=== PATIENT | female | born 1990 | race Caucasian/White ===

== ENCOUNTER 2024-02-25 07:43 | Emergency (ER) | payer OTHER ==
[~2024-02-25] VITALS: Ht 162.6 cm; Wt 81.8 kg
[2024-02-25 07:48] VITALS: TEMP 99.5
[2024-02-25] MEDS ORDERED: IOHEXOL 350 MG/ML 100 ML VIAL ONE (08:11)
[2024-02-25] MEDS ORDERED: SODIUM CHLORIDE 0.9% 100 ML ONE (08:11)
[2024-02-25] MEDS: ONDANSETRON HCL 4 MG/2 ML VIAL IVP ONE (08:17)
[2024-02-25] MEDS: ACETAMINOPHEN 500 MG TABLET PO ONE (08:18)
[2024-02-25] MEDS: KETOROLAC TROMETHAMINE 30 MG/ML VIAL IVP ONE (08:18)
[2024-02-25] MEDS: SODIUM CHLORIDE 0.9% 1,000 ML IV ONE ×2 (08:18→10:07)
[2024-02-25 08:24] LABS: BASOPHILS % (AUTO) 0.4 % (0.0-2.0); EOSINOPHILS % (AUTO) 0.7 % (1.0-6.0); HEMATOCRIT 41.8 % (36-46); HEMOGLOBIN 14.2 g/dL (12.0-16.0); LYMPHOCYTES # (AUTO) 1.7 K/uL (1.0-4.8); LYMPHOCYTES % (AUTO) 16.8 % (22.0-44.0); MEAN CORPUSCULAR HEMOGLOBIN 33.6 pg (26.0-34.0); MEAN CORPUSCULAR VOLUME 99 fL (80-100); MONOCYTES # (AUTO) 0.7 K/uL (0.1-1.0); MONOCYTES % (AUTO) 6.6 % (2.0-9.0); NEUTROPHILS # (AUTO) 7.4 K/uL (1.8-7.7); NEUTROPHILS % (AUTO) 75.5 % (40.0-70.0); PLATELET COUNT (AUTO) 176 K/uL (150-450); RED BLOOD CELL COUNT(AUTO) 4.22 MIL/uL (4.00-5.20); RED CELL DISTRIBUTION WIDTH 13.6 % (11.5-14.5); WHITE BLOOD COUNT (AUTO) 9.9 K/uL (4.5-11.0)
[2024-02-25 08:39] LABS: ANION GAP 11 mmol/L (8-16); CARBON DIOXIDE 25 mmol/L (22-29); CHLORIDE 102 mmol/L (98-107); CREATININE 0.65 mg/dL (0.60-1.30); GLOMERULAR FILTR. RATE CALC > 60 mL/min (>60); GLUCOSE,RANDOM 118 mg/dL (70-110); POTASSIUM 3.4 mmol/L (3.5-5.1); SODIUM SERUM 138 mmol/L (136-145); UREA NITROGEN, BLOOD 7 mg/dL (7-18)
[2024-02-25 08:44] LABS: ALANINE AMINOTRANSFERASE 156 U/L (12-78); ALKALINE PHOSPHATASE 77 U/L (46-116); ASPARTATE AMINOTRANSFERASE 100 U/L (15-37); LIPASE 35 U/L (16-77); TOTAL PROTEIN, SERUM 8.1 g/dL (6.4-8.2)
[2024-02-25 09:50] VITALS: BP 144/65; PULSE 74; RESP 18
[2024-02-25 10:52] LABS: APPEARANCE,URINE CLEAR (CLEAR); BILIRUBIN,URINE NEGATIVE (NEGATIVE); COLOR,URINE LIGHT YELLOW (YELLOW); GLUCOSE, URINE (UA) NEGATIVE (NEGATIVE); KETONES,URINE NEGATIVE (NEGATIVE); LEUKOCYTE ESTERASE ,URINE LARGE (NEGATIVE); NITRATE,URINE NEGATIVE (NEGATIVE); OCCULT BLOOD,URINE MODERATE (NEGATIVE); PH,URINE 7.5 (5.0-8.0); PROTEIN,URINE TRACE mg/dL (NEGATIVE); SPECIFIC GRAVITIY, URINE 1.043 (1.003-1.030); UROBILINOGEN,URINE <=1.0 mg/dL (<=1.0)
[2024-02-25 11:12] LABS: BACTERIA,URINE Moderate /HPF (None Seen); SQUAMOUS EPITHELIAL CELL,UR Few /LPF (None Seen)
[2024-02-25] MEDS ORDERED: CEPH-558 PO (11:16)
[2024-02-25] MEDS: CEPHALEXIN MONOHYDRATE 500 MG CAPSULE PO ONE (11:22)
== END 2024-02-25 11:30 | disposition home or self-care (01) ==
LOC: EMS 07:50
DX: N12 Tubulo-interstitial nephritis, not specified as acute or chronic (principal); R10.9 Unspecified abdominal pain; R30.0 Dysuria; R35.0 Frequency of micturition; Z88.5 Allergy status to narcotic agent; Z91.018 Allergy to other foods
CPT/HCPCS: 99285; 74177; 96374; 96361; 96375; 80048; 80076; 81001; 83690; 85025; 36415; 87086; 87186; 84703; Q9967; J1885; J2405; J7030; J7050

== ENCOUNTER 2025-05-26 08:10 | Emergency (ER) | payer OTHER ==
[~2025-05-26] VITALS: Ht 165.1 cm; Wt 77.3 kg
[~2025-05-26 08:10] MED LIST: CEPH-558 PO
[2025-05-26 08:12] VITALS: TEMP 98.4
[2025-05-26 08:34] LABS: PLATELET COUNT (AUTO) 182 K/uL (150-450); RED BLOOD CELL COUNT(AUTO) 4.31 MIL/uL (4.00-5.20); RED CELL DISTRIBUTION WIDTH 13.2 % (11.5-14.5); WHITE BLOOD COUNT (AUTO) 6.6 K/uL (4.5-11.0)
[2025-05-26 08:41] LABS: CALCIUM, TOTAL 9.3 mg/dL (8.8-10.5); CREATININE 0.54 mg/dL (0.60-1.30); GLOMERULAR FILTR. RATE CALC > 60 mL/min (>60); GLUCOSE,RANDOM 101 mg/dL (70-110); SODIUM SERUM 141 mmol/L (136-145); UREA NITROGEN, BLOOD 7 mg/dL (7-18)
[2025-05-26 08:47] LABS: ASPARTATE AMINOTRANSFERASE 97.0 U/L (15-37); TOTAL PROTEIN, SERUM 8.0 g/dL (6.4-8.2)
[2025-05-26 09:22] LABS: APPEARANCE,URINE CLEAR (CLEAR); GLUCOSE, URINE (UA) NEGATIVE (NEGATIVE); LEUKOCYTE ESTERASE ,URINE NEGATIVE (NEGATIVE); NITRATE,URINE NEGATIVE (NEGATIVE); OCCULT BLOOD,URINE NEGATIVE (NEGATIVE); SPECIFIC GRAVITIY, URINE 1.006 (1.003-1.030)
[2025-05-26 09:25] VITALS: BP 135/75; PULSE 64; RESP 18; O2SAT 99
[2025-05-26] MEDS: ACETAMINOPHEN 500 MG TABLET PO ONE (10:00)
[2025-05-26] MEDS: MAG HYDROX/ALUMINUM HYD/SIMETH ES 30 ML SUSPENSION UDCUP PO ONE (10:00)
[2025-05-26] MEDS: ONDANSETRON 4 MG TABLET PO ONE (10:01)
[2025-05-26] MEDS ORDERED: MAG30ORA11 PO (12:08)
[2025-05-26] MEDS ORDERED: ACET-2080 PO (12:08)
[2025-05-26] MEDS ORDERED: OMEP-148 PO (12:08)
== END 2025-05-26 12:35 | disposition home or self-care (01) ==
LOC: EMS 08:15
DX: K80.70 Calculus of gallbladder and bile duct without cholecystitis without obstruction (principal); R10.11 Right upper quadrant pain; Z88.5 Allergy status to narcotic agent; Z79.899 Other long term (current) drug therapy; Z98.890 Other specified postprocedural states
CPT/HCPCS: 99284; 76705; 80048; 80076; 81003; 83690; 84703; 85025; 36415; Q0162